=== PATIENT | male | born 1990 | race Caucasian/White ===

== ENCOUNTER 2024-10-22 11:44 | Emergency (ER) | payer SELFPAY ==
[~2024-10-22] VITALS: Ht 193 cm; Wt 110.6 kg
[2024-10-22 12:12] VITALS: BP 125/79; PULSE 86; RESP 15; TEMP 97.4; O2SAT 97
[2024-10-22] MEDS ORDERED: PHEN1LIQ50 PO (13:38)
[2024-10-22] MEDS ORDERED: AZIT500T PO (13:38)
[2024-10-22] MEDS ORDERED: IBU600T PO (13:38)
--- NOTE | 2024-10-22 13:38 | ED.PDOC ---
SOB-HPI HPI Comments 34-year-old male presented to the fast track complaining of the flu syndrome with cough congestion sore throat and sinus headaches duration one week also body aches Chief Complaint: Flu like Time Seen by MD: 12:05 Reviewed notes: Nurses Notes, Medications, Allergies Information Source: Patient Mode of Arrival: Ambulatory Severity: Mild Timing: Days Duration: Since onset Context: At Rest PE Risk Factors: None History of: Recent URI Modifying Factors: Nothing Associated Signs and Symptoms: Fever, Cough, Nasal Congestion, Sore Throat If cough with SOB: Productive, White Past Medical History PAST MEDICAL HISTORY: Denies Surgical History: Appendectomy Family History Family History: Reviewed,noncontributory to illness, No family hx of Cancer, No family hx of DM, No family hx of Heart leonard, No family hx of HTN, No family hx ofKidney leonard, No family hx of Liver leonard, No family hx of Lung leonard, No family hx of Stroke Social History Smoker: Cigarettes Alcohol: Denies ETOH Use Drugs: Denies Drug Use Lives In: Home Constitutional: reports: chills, fever; denies: diaphoresis, fatigue, malaise, sweats, weakness, others EENTM: reports: throat pain, throat swelling; denies: blurred vision, double vision, ear bleeding, ear discharge, ear drainage, ear pain, ear ringing, eye pain, eye redness, hearing loss, mouth pain, mouth swelling, nasal discharge, nose bleeding, nose congestion, nose pain, photophobia, tearing, voice changes, others Respiratory: reports: cough; denies: hemoptysis, orthopnea, SOB at rest, shortness of breath, SOB with excertion, stridor, wheezing, others Cardiovascular: denies: chest pain, dizzy spells, diaphoresis, Dyspnea on exertion, edema, irregular heart beat, left arm pain, lightheadedness, palpitations, PND, syncope, others Gastrointestinal: denies: abdomen distended, abdominal pain, blood streaked bowels, constipated, diarrhea, dysphagia, difficulty swallowing, hematemesis, melena, nausea, poor appetite, poor fluid intake, rectal bleeding, rectal pain, vomiting, others Genitourinary: denies: burning, dysuria, flank pain, frequency, hematuria, incontinence, penile discharge, penile sore, pain, testicle pain, testicle swelling, urgency, others Musculoskeletal: denies: back pain, gout, joint pain, joint swelling, muscle pain, muscle stiffness, neck pain, others Integumetry: denies: bruises, change in color, change in hair/nails, dryness, laceration, lesions, lumps, rash, wounds, others Allergic/Immunocompromised: denies: Difficulty Healing, Frequent Infections, Hives, Itching, others Hematologic/Lymphatic: denies: anemia, blood clots, easy bleeding, easy bruising, swollen glands, others Endocrine: denies: excessive hunger, excessive sweating, excessive thirst, excessive urination, flushing, intolerance to cold, intolerance to heat, unexplained weight gain, unexplained weight loss, others Psychiatric: denies: anxiety, bipolar disorder, depression, hopeless, panic disorder, schizophrenia, sleepless, suicidal, others All Other Systems: Reviewed and Negative Physical Exam General Appearance: Mild Distress HEENT: PERRL/EOMI, Pharyngeal Erythema, Tonsillar Exudate Neck: Full Range of Motion, Non-Tender, Normal, Normal Inspection Respiratory: Chest Non-Tender, Lungs Clear, No Accessory Muscle Use, No Respiratory Distress, Normal Breath Sounds Cardiovascular: No Edema, No JVD, No Murmur, No Gallop, Normal Peripheral Pulses, Regular Rate/Rhythm Breast Exam: Deferred Gastrointestinal: No Organomegaly, Non Tender, No Pulsatile Mass, Normal Bowel Sounds, Soft Genitalia: Deferred Pelvic: Deferred Rectal: Deferred Extremities: No calf tenderness, Normal capillary refill, Normal inspection, Normal range of motion, Non-tender, No pedal edema Neurologic: Alert, patient access director II-XII nml as Tested, No Motor Deficits, Normal Affect, Normal Mood, No Sensory Deficits Cerebellar Function: Normal Reflexes: Normal Skin: Dry, Normal Color, Warm Peripheral Pulses: 1+ carotid (R), 1+ carotid (L) Lymphatic: No Adenopathy Was a procedure done? Was a procedure done?: No Differential Dx Differential Diagnosis: Bronchitis, Sinusitis, Peritonsillar Cellulitis, Pharyngitis, URI X-Ray, Labs, Meds, VS Vital Signs Date Time Temp Pulse Resp B/P (MAP) Pulse Ox O2 Delivery O2 Flow Rate FiO2 10/22/24 13:44 Room Air* 0 21 10/22/24 12:12 97.4 86 15 125/79 (94) 97 97.4 10/22/24 12:12 97.4 86 15 125/79 (94) 97 97.4 10/22/24 12:12 86 15 X-Ray, Labs, Meds, VS Comment Course in the fast track uneventful Patient with URI pharyngitis not in acute distress He will be discharged with medication Time of 1ST Reevaluation: 13:33 Reevaluation 1ST: Unchanged Consultation: PCP Patient Education/Counseling: Diagnosis, Treatment, Prognosis, Need For Follow Up Family Education/Counseling: Diagnosis, Treatment, Prognosis, Need For Follow Up Departure 1 Departure Time of Disposition: 13:34 Impression: Primary Impression: Acute pharyngitis Qualified Codes: J02.8 - Acute pharyngitis due to other specified organisms Additional Impressions: Flu syndrome Body aches Disposition: 01 HOME / SELF CARE / HOMELESS Condition: Fair Additional Instructions: Push fluids and follow up with your PCP e-Prescriptions Ibuprofen Micronized (MOTRIN TABLET) 600 Mg Tb 600 MG PO TID PRN for 10 Days, #30 TAB *Black box warning-NSAIDS can increase risk of NM & hypertension, GI irritation, ulceration, bleed, perferation. Do not use post cardiac surgery. Use short duration/lowest effective dose. Prov: NICK CASTELLANOS MD 10/22/24 Sjmcznhjnqkkt-Qy-CM W/ APAP (Robitussin Severe Mul... 0-17-747-325 mg/10Ml) 1 Liq Liq 1 LIQ PO TID for 10 Days, #300 LIQ Prov: NICK CASTELLANOS MD 10/22/24 Azithromycin (Zithromax) 500 Mg Tab 1 TAB PO DAILY for 5 Days, #5 TAB Prov: NICK CASTELLANOS MD 10/22/24 Discharged With: Self Critical Care Note Critical Care Time?: No Stability Stability form required: No Heart Score Heart Score: Heart Score Response (Comments) Value History N/A 0 EKG N/A 0 Age <45 0 Risk Factors No known risk factors 0 Troponin N/A 0 Total 0 NICK CASTELLANOS MD Oct 22, 2024 13:38
== END 2024-10-22 13:58 | disposition home or self-care (01) ==
LOC: ER 11:51
DX: J02.8 Acute pharyngitis due to other specified organisms (principal); B97.89 Other viral agents as the cause of diseases classified elsewhere; M79.18 Myalgia, other site; F17.210 Nicotine dependence, cigarettes, uncomplicated; Z90.49 Acquired absence of other specified parts of digestive tract

== ENCOUNTER 2025-01-16 13:41 | Emergency (ER) | payer MEDICAID, OTHER ==
[~2025-01-16] VITALS: Ht 193 cm; Wt 109.2 kg
[~2025-01-16 13:41] MED LIST: AZIT500T PO; IBU600T PO; PHEN1LIQ50 PO
[2025-01-16 14:49] VITALS: BP 118/68; PULSE 77; RESP 17; TEMP 98.2; O2SAT 99
[2025-01-16] MEDS ORDERED: ERY05OO OP (14:57)
--- NOTE | 2025-01-16 14:57 | ED.PDOC ---
Eye-HPI HPI Comments 34 y/o M presents right eye redness, with associated irritation an discharge. Patient endorses on symptoms starting last night with irritation, initially, and awakening, this morning, to his eye shut, covered in green mucus discharge. He then states on washing his eyes and noticing redness to his conjunctiva. Patient reports positive sick contact with his children at home, who presented with similar symptoms then but was never diagnosed with pink eye then. Denies vision changes Denies eye discharge Denies hearing changes, nausea, vomiting Denies eye pain with movement, eye pain in general, difficulty keeping eye open, feeling of something stuck in the eye, sensitivity to light Chief Complaint: Eye Problem Time Seen by MD: 13:58 Primary Care Provider: NONE Reviewed Notes: Nurses Notes, Medications, Allergies Allergies: Coded Allergies: NO KNOWN ALLERGIES (Unverified , 10/22/24) Home Meds Active Scripts Erythromycin (Erythromycin) 5 Mg/Gm Oin, 1 APPLIC OP TID for 10 Days, #3.5 GRAMS 0 Refills Prov:NATE SPRING ORNAMENTAL BRICK INSTALLER 01/16/25 Ibuprofen Micronized (MOTRIN TABLET) 600 Mg Tb, 600 MG PO TID PRN for 10 Days, #30 TAB *Black box warning-NSAIDS can increase risk of LA & hypertension, GI irritation, ulceration, bleed, perferation. Do not use post cardiac surgery. Use short duration/lowest effective dose. Prov:NICK CASTELLANOS MD 10/22/24 Cuxhyrzeaqnqf-My-YC W/ APAP (Robitussin Severe Mul... 1-23-059-325 mg/10Ml) 1 Liq Liq, 1 LIQ PO TID for 10 Days, #300 LIQ Prov:NICK CASTELLANOS MD 10/22/24 Azithromycin (Zithromax) 500 Mg Tab, 1 TAB PO DAILY for 5 Days, #5 TAB Prov:NICK CASTELLANOS MD 10/22/24 Information Source: Patient Mode of Arrival: Ambulatory Past Medical History PAST MEDICAL HISTORY: Denies Surgical History: Appendectomy Family History Family History: Reviewed,noncontributory to illness, No family hx of Cancer, No family hx of DM, No family hx of Heart leonard, No family hx of HTN, No family hx ofKidney leonard, No family hx of Liver leonard, No family hx of Lung leonard, No family hx of Stroke Social History Smoker: Cigarettes Alcohol: Denies ETOH Use Drugs: Denies Drug Use Lives In: Home All Other Systems: Reviewed and Negative (As per HPI) Physical Exam General Appearance: No Apparent Distress, Normal HEENT: Cornea (R) (Noticable unilateral, right sided conjunctival injection to the sclera), Normal ENT Inspection, Pharynx Normal, TMs Normal, Other (No orbital erythema, swelling, or open wounds; no signs of hyphema; no foreign bodies appreciated with upper or lower lid aversion; PERRL; EOM intact ) Neck: Full Range of Motion, Non-Tender, Normal, Normal Inspection Respiratory: Chest Non-Tender, Lungs Clear, No Accessory Muscle Use, No Respiratory Distress, Normal Breath Sounds Cardiovascular: No Edema, No JVD, No Murmur, No Gallop, Normal Peripheral Pulses, Regular Rate/Rhythm Breast Exam: Deferred Gastrointestinal: No Organomegaly, Non Tender, No Pulsatile Mass, Normal Bowel Sounds, Soft Genitalia: Deferred Pelvic: Deferred Rectal: Deferred Extremities: No calf tenderness, Normal capillary refill, Normal inspection, Normal range of motion, Non-tender, No pedal edema Musculoskeletal : Apperance: Normal Neurologic: Alert, paraffin machine operator II-XII nml as Tested, No Motor Deficits, Normal Affect, Normal Mood, No Sensory Deficits Cerebellar Function: Normal Reflexes: Normal Skin: Dry, Normal Color, Warm Lymphatic: No Adenopathy Was a procedure done? Was a procedure done?: No EENT DIFF Eye: Viral, Corneal Abrasion, Corneal Lacerations, Corneal Ulceration, Foreign Body-Conjunctiva, Glaucoma, Globe Rupture, Subconjunctival Hemorrhag, Other (conjunctivitis) X-Ray, Labs, Meds, VS Vital Signs Date Time Temp Pulse Resp B/P (MAP) Pulse Ox O2 Delivery O2 Flow Rate FiO2 01/16/25 14:49 98.2 77 18 118/68 (85) 99 98.2 01/16/25 14:49 77 17 99 Room Air 01/16/25 14:13 97.4 73 16 116/71 (86) 97 97.4 X-Ray, Labs, Meds, VS Comment 34 y/o M presents right eye redness, with associated irritation an discharge. Patient arrives alert and oriented, ABC's intact, afebrile, vital signs stable, saturating well in room air Prescribed patient antibiotics. Presentation consistent with bacterial conjunctivitis. Patient is otherwise afebrile and well-appearing without clinical evidence of pre-septal cellulitis or orbital cellulitis. No recent history concerning for corneal abrasion or retained foreign body. No corneal opacity of keratitis, no ciliary flush on exam Prescription for topical antibiotics provided. Advised that patient still considered contagious for up to 24 hours after starting antibiotics Discussed: -Frequent hand washing -Over the counter analgesics -Hydration - Return to school/work after 24 hours of antibiotic use -Close follow up with a primary care provider or higher level of care if no improvement/worsening symptoms Additional MDM Review of External, Non-ED records: External records reviewed. Discussion with independent historian (EMS, family) history obtained from the patient/parents (if applicable) at bedside Chronic conditions affecting care: None Social determinants of health affecting care: None Consideration of admission (observation or admission): I considered escalation of care to admission for this patient, however given the reassuring workup, the patient is safe for outpatient management. Time of 1ST Reevaluation: 14:28 Reevaluation 1ST: Improved Patient Education/Counseling: Diagnosis, Treatment, Need For Follow Up Family Education/Counseling: No Family Present Departure 1 Departure Time of Disposition: 14:56 Impression: Primary Impression: Conjunctivitis Qualified Codes: H10.31 - Unspecified acute conjunctivitis, right eye Disposition: 01 HOME / SELF CARE / HOMELESS Condition: Stable e-Prescriptions Erythromycin (Erythromycin) 5 Mg/Gm Oin 1 APPLIC OP TID for 10 Days, #3.5 GRAMS 0 Refills Prov: NATE SPRING NP 01/16/25 Critical Care Note Critical Care Time?: No Stability Stability form required: No Heart Score Heart Score: Heart Score Response (Comments) Value History N/A 0 EKG N/A 0 Age N/A 0 Risk Factors N/A 0 Troponin N/A 0 Total 0 I personally scribed for NATE SPRING NP ([email or web address]) on 01/16/25 at 15:30. Electronically submitted by Enmanuel Nava ([email or web address]). NATE SPRING NP Jan 16, 2025 14:57
== END 2025-01-16 15:02 | disposition home or self-care (01) ==
LOC: ER 13:57
DX: H10.9 Unspecified conjunctivitis (principal); F17.210 Nicotine dependence, cigarettes, uncomplicated; Z90.49 Acquired absence of other specified parts of digestive tract; Z79.899 Other long term (current) drug therapy